=== PATIENT | female | born 1975 | race African-American/Black ===

== ENCOUNTER 2018-04-06 20:54 | Emergency (ER) | payer MEDICARE, MEDICAID ==
[~2018-04-06] VITALS: Ht 165.1 cm; Wt 75.7 kg
[2018-04-06] MEDS ORDERED: ONDANSETRON ODT 4 MG TAB.RAPDIS SL ONE (21:15)
[2018-04-06] MEDS ORDERED: HYDROCODONE/APAP 10-325 MG TABLET PO ONE ×2 (21:15→22:15)
[2018-04-06] MEDS ORDERED: HYDROCODONE/APAP 10-325 MG TABLET ONE ×2 (21:21→22:08)
[2018-04-06] MEDS ORDERED: ONDANSETRON ODT 4 MG TAB.RAPDIS ONE (21:21)
--- NOTE | 2018-04-06 22:28 | NUR ---
Patient discharged to home in stable conditon. Written and verbal after care instructions given. Patient verbalizes understanding of instructions. Pt ambulated out of ER via crutches with boyfriend who will drive home. All belongings with pt. VSS. NAD noted.
[2018-04-06 22:29] VITALS: BP 114/72
== END 2018-04-06 22:30 | disposition home or self-care (01) ==
LOC: ER 20:54
DX: S93.601A Unspecified sprain of right foot, initial encounter (principal); F12.10 Cannabis abuse, uncomplicated; X50.1XXA Overexertion from prolonged static or awkward postures, initial encounter; Y93.89 Activity, other specified; Y92.89 Other specified places as the place of occurrence of the external cause; Y99.8 Other external cause status
CPT/HCPCS: 73610; 73630; A4663; Q0162